=== PATIENT | female | born 1975 | race Caucasian/White ===

== ENCOUNTER → 2017-02-20 | Outpatient (CLI) | payer BC, OTHER ==
[~2017-02-20] MED LIST: ALPR1TAB2 PO; AMOX-291 PO; ATOR20TA9 PO; DIPH25CA61 PO; HYDR-3237 PO; MULT-224 PO; TIZA2TAB PO; ZOLP10TA PO
== END ==
LOC: STAR 11:20
PROVIDERS: ATTEND Orthopaedic Surgery
DX: Z02.9 Encounter for administrative examinations, unspecified (principal)

== ENCOUNTER 2017-02-26 11:15 | Day surgery (SDC) | payer BC, OTHER ==
[~2017-02-26] VITALS: Ht 165.1 cm; Wt 81.5 kg
[~2017-02-26 11:15] MED LIST changes: +EPINEPHRINE 1 MG/ML, 1ML ONE; +LIDOCAINE/PF 1%, 30ML ONE; +ROPIvacaine/PF 0.5%, 30 ML ONE
[2017-02-26 11:43] VITALS: BP 125/87
[2017-02-26] MEDS ORDERED: LACTATED RINGERS 1,000 ML IV SCH (12:05)
[2017-02-26] MEDS ORDERED: ROCURONIUM 10 MG/ML ONE (12:13)
[2017-02-26] MEDS ORDERED: KETOROLAC 30 MG/1 ML ONE (12:13)
[2017-02-26] MEDS ORDERED: ONDANSETRON 2MG/ML, 2ML ONE (12:13)
[2017-02-26] MEDS ORDERED: METOCLOPRAMIDE 5 MG/ML, 2ML ONE (12:13)
[2017-02-26] MEDS ORDERED: NEOSTIGMINE 1 MG/ML, 10ML ONE (12:13)
[2017-02-26] MEDS ORDERED: PROPOFOL 10 MG/ML, 20ML ONE (12:13)
[2017-02-26] MEDS ORDERED: GLYCOPYRROLATE 0.2MG/1ML, 5ML ONE (12:13)
[2017-02-26] MEDS ORDERED: CEFAZOLIN 1,000 MG ONE (12:13)
[2017-02-26] MEDS ORDERED: DEXAMETHASONE 4 MG/ML, 1ML ONE (12:13)
[2017-02-26] MEDS ORDERED: OXYcodone 5 MG/5 ML ORAL.SOL UDC PO PRN (13:00)
[2017-02-26] MEDS ORDERED: ONDANSETRON 2MG/ML, 2ML IVPush PRN (13:00)
[2017-02-26] MEDS ORDERED: MEPERIDINE/PF 25MG/0.5ML IVPush PRN (13:00)
[2017-02-26] MEDS ORDERED: FENTANYL PF 100 MCG/2ML IV PRN (13:00)
[2017-02-26] MEDS ORDERED: LABETALOL 5MG/ML, 20ML IV PRN (13:00)
[2017-02-26] MEDS ORDERED: HYDROmorphone 1 MG/ML, 1ML IV PRN (13:00)
[2017-02-26] MEDS ORDERED: PROMETHAZINE 25 MG/ML, 1ML IV PRN (13:00)
[2017-02-26] MEDS ORDERED: MIDAZOLAM 1 MG/ML, 2ML IV PRN (13:00)
[2017-02-26] MEDS ORDERED: LORazepam 2 MG/ML, 1ML IVPush PRN (13:00)
[2017-02-26] MEDS ORDERED: hydrALAzine 20 MG/ML, 1ML IV PRN (13:00)
[2017-02-26] MEDS ORDERED: ACETAMINOPHEN 325 MG TABLET PO PRN (13:00)
[2017-02-26] MEDS ORDERED: PROMETHAZINE 25 MG/ML, 1ML ONE (13:19)
[2017-02-26] MEDS ORDERED: OXYcodone 5 MG/5 ML ORAL.SOL UDC ONE (13:35)
[2017-02-26] MEDS ORDERED: FENTANYL PF 100 MCG/2ML ONE (13:35)
== END 2017-02-26 15:30 ==
LOC: OUT 11:15
PROVIDERS: ATTEND Orthopaedic Surgery
DX: S83.282A Other tear of lateral meniscus, current injury, left knee, initial encounter (principal); M65.862 Other synovitis and tenosynovitis, left lower leg; M94.262 Chondromalacia, left knee; T84.84XA Pain due to internal orthopedic prosthetic devices, implants and grafts, initial encounter; Y83.8 Other surgical procedures as the cause of abnormal reaction of the patient, or of later complication, without mention of misadventure at the time of the procedure; Y92.89 Other specified places as the place of occurrence of the external cause; X58.XXXA Exposure to other specified factors, initial encounter; Y93.89 Activity, other specified; Y99.8 Other external cause status; Z88.8 Allergy status to other drugs, medicaments and biological substances; Z90.710 Acquired absence of both cervix and uterus; Z98.890 Other specified postprocedural states; Z87.39 Personal history of other diseases of the musculoskeletal system and connective tissue
CPT/HCPCS: 20680; 29881; 73560; 76000; J0171; J0690; J1100; J1885; J2405; J2550; J2704; J2710; J2765; J2795; J3010; J3490; J7120